=== PATIENT | female | born 1930 ===

== ENCOUNTER 2018-01-10 09:30 | Emergency (ER) | payer MEDICARE, MEDICAID ==
[2018-01-10 09:59] VITALS: RESP 18; TEMP 98.5; BMI 20.5
--- NOTE | 2018-01-10 10:54 | ED PDOC ---
Arrival/HPI - General Chief Complaint: Female Genitourinary Time Seen by Provider: 01/10/18 09:54 Historian: Patient - History of Present Illness Narrative History of Present Illness (Text): 01/10/18 10:30 Macey Rubi is an 87 year old female who presents to the emergency department complaining of vaginal bleeding since this morning with blood clots. Patient's family notes that patient is post-menopausal for years now. Patient denies any chest pain, shortness of breath, syncope, palpitations, fall, trauma , or any other complaints at this time. PMD:Dr. Lewis Time/Duration: 4-6 hours Symptom Onset: Gradual Symptom Course: Unchanged Activities at Onset: Light Context: Home Past Medical History - Provider Review Nursing Documentation Reviewed: Yes - Travel History If Yes, travel location?: [facility] - Infectious Disease Hx of Infectious Diseases: None - Tetanus Immunization Tetanus Immunization: Unknown - Cardiac Hx Cardiac Disorders: Yes Hx Hypertension: Yes - Pulmonary Hx Respiratory Disorders: No - Neurological Hx Neurological Disorder: No - HEENT Hx HEENT Disorder: No - Renal Hx Renal Disorder: No - Endocrine/Metabolic Hx Endocrine Disorders: No - Hematological/Oncological Hx Blood Disorders: No - Integumentary Hx Dermatological Disorder: No - Musculoskeletal/Rheumatological Hx Musculoskeletal Disorders: Yes Hx Arthritis: Yes - Gastrointestinal Hx Gastrointestinal Disorders: Yes Hx Gastroesophageal Reflux: Yes - Genitourinary/Gynecological Hx Genitourinary Disorders: No - Psychiatric Hx Psychophysiologic Disorder: No Hx Substance Use: No - Surgical History Hx Orthopedic Surgery: Yes Other/Comment: right knee surgery - Anesthesia Hx Anesthesia Reactions: No Hx Malignant Hyperthermia: No - Suicidal Assessment Feels Threatened In Home Enviroment: No Family/Social History - Physician Review Nursing Documentation Reviewed: Yes Family/Social History: No Known Family HX Smoking Status: Never Smoked Hx Alcohol Use: No Hx Substance Use: No Hx Substance Use Treatment: No Allergies/Home Meds Allergies/Adverse Reactions: Allergies No Known Allergies Allergy (Verified 01/10/18 09:48) Home Medications: Home Meds Medication Instructions Recorded Confirmed Valsartan/Hydrochlorothiazide 1 each PO DAILY 01/10/18 01/10/18 [Valsartan-Hctz 80-12.5 mg Tab] Review of Systems - Physician Review All systems were reviewed & negative as marked: Yes - Review of Systems Constitutional: absent: Fevers, Night Sweats Eyes: absent: Vision Changes ENT: absent: Hearing Changes Respiratory: absent: SOB, Cough Cardiovascular: absent: Chest Pain Gastrointestinal: absent: Abdominal Pain Genitourinary Female: Vaginal Bleeding Musculoskeletal: absent: Arthralgias Skin: absent: Rash Neurological: absent: Headache Endocrine: absent: Diaphoresis Hemo/Lymphatic: absent: Adenopathy Psychiatric: absent: Anxiety Physical Exam - Physical Exam Narrative Physical Exam (Text): Constitutional: No acute distress. Head: Normocephalic. Atraumatic. Eyes: PERRL. No conjunctival pallor. ENT: Moist mucous membranes. Neck: Supple. Cardiovascular: Regular rate. Chest: No tenderness. Respiratory: Clear to auscultation bilaterally. GI: Soft. Nontender. Nondistended. Back: No CVA tenderness. Musculoskeletal: No tenderness or swelling of extremities. Skin: No rash. Neurologic: Alert, no focal deficit. Vital Signs Reviewed: Yes Vital Signs Temp Pulse Resp BP Pulse Ox 01/10/18 09:54 98.5 F 99 H 18 164/99 H 99 Temperature: Afebrile Blood Pressure: Hypertensive Pulse: Regular Respiratory Rate: Normal Appearance: Positive for: Well-Appearing, Non-Toxic, Comfortable Pain Distress: None Mental Status: Positive for: Alert and Oriented X 3 Medical Decision Making ED Course and Treatment: 01/10/18 10:55 Impression: 87 year old female complaining of vaginal bleeding since this morning. Plan: -- Transvaginal US -- Urine culture and Urinalysis -- Type and Screen -- Labs -- Reassess and disposition Prior Visits: Notes and results from previous visits were reviewed. Patient was last seen in the emergency department on 12/25/15 for nausea, vomiting and diarrhea. Patient was discharged home. Progress Notes: 01/10/18 11:46 IMPRESSION: Unremarkable examination. 4 mm endometrium, within normal limits. No endometrial mass or abnormal thickening. Ovaries not visualized. No adnexal mass is identified. Please note that evaluation of the adnexae is limited due to the extent of bowel gas. Patient in no distress, Hb normal, vitals stable. Will discharge, will require [employer] follow up. Return to ED for worsening blood loss or pain. - Lab Interpretations Lab Results: 01/10/18 10:00 01/10/18 10:00 Lab Results 01/10/18 10:00: PT 11.8, INR 1.03, APTT 28.1 01/10/18 10:00: WBC 7.1, RBC 4.51, Hgb 12.1, Hct 35.8 L, MCV 79.4 L, MCH 26.8, MCHC 33.8, RDW 16.2 H, Plt Count 149, MPV 10.8, Gran % 68.6 H, Lymph % (Auto) 17.7 L, [place] % (Auto) 13.0 H, Eos % (Auto) 0.4 L, Baso % (Auto) 0.3, Gran # 4.85 , Lymph # (Auto) 1.3, [place] # (Auto) 0.9 H, Eos # (Auto) 0.0, Baso # (Auto) 0.02 01/10/18 10:00: Blood Type A POSITIVE, Antibody Screen Negative, BBK History Checked Patient has bt 01/10/18 10:00: Sodium 143, Potassium 3.5 L, Chloride 102, Carbon Dioxide 28, Anion Gap 17, BUN 14, Creatinine 0.7, Est GFR ( Amer) > 60, Est GFR (Non- Af Amer) > 60, Random Glucose 97, Calcium 9.4, Total Bilirubin 0.5, AST 92 H, ALT 58 H, Alkaline Phosphatase 86, Total Protein 7.7, Albumin 3.9, Globulin 3.7 , Albumin/Globulin Ratio 1.1 I have reviewed the lab results: Yes - RAD Interpretation Radiology Orders: 01/10/18 10:28 TRANSVAGINAL [US] Stat Disposition/Present on Arrival - Present on Arrival Any Indicators Present on Arrival: No History of DVT/PE: No History of Uncontrolled Diabetes: No Urinary Catheter: No History of Decub. Ulcer: No History Surgical Site Infection Following: None - Disposition Have Diagnosis and Disposition been Completed?: Yes Diagnosis: Vaginal bleeding, abnormal Disposition: HOME/ ROUTINE Disposition Time: 11:47 Patient Plan: Discharge Condition: STABLE Discharge Instructions (ExitCare): Uterine Cancer (DC) Referrals: Kishor Mota MD [Staff Provider] - Follow up with primary Forms: [employer] (Bulgarian)
[2018-01-10 11:01] LABS: BASO # 0.02 K/mm3 (0.0-2.0); BASO % 0.3 % (0.0-3.0); EOS % 0.4 % (1.5-5.0); GRAN # 4.85 (1.4-6.5); GRAN % 68.6 % (50.0-68.0); HEMOGLOBIN 12.1 g/dL (12.0-16.0); LYMPH # 1.3 (1.2-3.4); LYMPH % 17.7 % (22.0-35.0); MEAN CELL VOLUME 79.4 fl (80.0-105.0); MEAN CORPUSCULAR HEMOGLOBIN 26.8 pg (25.0-35.0); MEAN CORPUSCULAR HGB CONC 33.8 g/dl (31.0-37.0); MEAN PLATELET VOLUME 10.8 fl (7.0-11.0); MONO # 0.9 (0.1-0.6); RBC 4.51 10^6/uL (3.5-6.1); RED CELL DISTRIBUTION WIDTH 16.2 % (11.5-14.5); WHITE BLOOD COUNT 7.1 10^3/ul (4.5-11.0)
[2018-01-10 11:09] LABS: ALB/GLOB RATIO 1.1 (1.1-1.8); ALBUMIN 3.9 g/dL (3.0-4.8); ALT/SGPT 58 U/L (7-56); AST/SGOT 92 U/L (14-36); BLOOD UREA NITROGEN 14 mg/dL (7-21); CALCIUM 9.4 mg/dL (8.4-10.5); GFR AFRICAN-AMERICAN > 60; GFR NON-AFRICAN AMERICAN > 60; INR 1.03 (0.93-1.08); PARTIAL THROMBOPLASTIN TIME 28.1 Seconds (25.1-36.5); PROTHROMBIN TIME 11.8 SECONDS (9.4-12.5)
--- NOTE | 2018-01-10 11:41 | US ---
HISTORY: vaginal bleeding COMPARISON: None available. TECHNIQUE: Transabdominal and transvaginal Please note that the transabdominal examination is grossly limited due to the absence of a distended urinary bladder. FINDINGS: UTERUS: Measures 4.8 x 1.7 x 3.2 cm. No uterine mass. Vascular calcifications are noted. ENDOMETRIUM: Measures 4 mm in diameter. Unremarkable. CERVIX: No cervical abnormality identified. RIGHT OVARY: Not visualize LEFT OVARY: Not visualize FREE FLUID: No significant free fluid noted. OTHER FINDINGS: None. IMPRESSION: Unremarkable examination. 4 mm endometrium, within normal limits. No endometrial mass or abnormal thickening. Ovaries not visualized. No adnexal mass is identified. Please note that evaluation of the adnexae is limited due to the extent of bowel gas.
[2018-01-10 11:59] VITALS: BP 139/85; PULSE 84
[2018-01-10 12:17] VITALS: O2SAT 99
== END 2018-01-10 12:16 | disposition home or self-care (01) ==
LOC: ED 09:30
DX: N93.9 Abnormal uterine and vaginal bleeding, unspecified (principal); I10 Essential (primary) hypertension; K21.9 Gastro-esophageal reflux disease without esophagitis